=== PATIENT | male | born 1975 | race Caucasian/White ===

== ENCOUNTER 2016-09-16 10:30 | Inpatient (IN) | payer OTHER ==
[~2016-09-16] VITALS: Ht 188 cm; Wt 97.0 kg
[2016-09-16 10:31] VITALS: BP 141/87; PULSE 97; RESP 17; TEMP 98.3; O2SAT 99
[2016-09-16 10:47] VITALS: BP 146/76; PULSE 80; RESP 16; O2SAT 99
[2016-09-16] MEDS ORDERED: LIDOCAINE HCL 1% 50 ML VIAL INFIL ONE (11:00)
[2016-09-16] MEDS ORDERED: TETANUS/DIPHTHERIA TOXOID ADULT 0.5 ML VIAL IM ONE (11:00)
--- NOTE | 2016-09-16 11:12 | PD ---
HPI Chief Complaint: Injury Time Seen by Provider: 10:42 Travel History International Travel<30 days: No Contact w/Intl Traveler<30days: No Traveled to known affect area: No History of Present Illness HPI 41yo M with no PMH presents to the ED with c/o left toe pain s/p running and hitting his left big toe on the sloped wall of [employer] about an hour prior to arrival. States he saw bone. Does not know last tetanus. Denies any other injuries. Last drink/foot was 9:30am. PFSH Past Medical History Medical History: Denies Significant Hx Tetanus Vaccination: > 5 Years Influenza Vaccination: No Social History Alcohol Use: No Tobacco Use: No Substance Use: No Allergies-Medications (Allergen,Severity, Reaction): Coded Allergies: No Known Allergies (Unverified , 09/16/16) Reported Meds & Prescriptions Reported Meds & Active Scripts Active No Active Prescriptions or Reported Medications Review of Systems Except as stated in HPI: all other systems reviewed are Neg Physical Exam Narrative GENERAL: 41yo M in distress. SKIN: Focused skin assessment warm/dry. HEAD: Atraumatic. Normocephalic. CARDIOVASCULAR: Regular rate and rhythm. No murmur appreciated. RESPIRATORY: No accessory muscle use. Clear to auscultation. Breath sounds equal bilaterally. GASTROINTESTINAL: Abdomen soft, non-tender, nondistended. No rebound tenderness or guarding. MUSCULOSKELETAL: Left foot: +Open fracture of distal phalanx of 1st toe. +Bone exposed from 4cm laceration on distal 1st phalanx. DP 2+. Sensation intact. NEUROLOGICAL: Awake and alert. No obvious cranial nerve deficits. Motor grossly within normal limits. Normal speech. PSYCHIATRIC: Appropriate mood and affect; insight and judgment normal. Data Data Last Documented VS Vital Signs Date Time Temp Pulse Resp B/P Pulse Ox O2 Delivery O2 Flow Rate FiO2 09/16/16 10:47 80 16 146/76 99 Room Air 09/16/16 10:31 98.3 Orders Foot, Complete ([id number]) (09/16/16 ) Lidocaine 1% Inj (50 Ml) (Xylocaine 1% I (09/16/16 11:00) Tetanus/Diphtheria Tox Adult (Tetanus/Di (09/16/16 11:00) Morphine Inj (Morphine Inj) (09/16/16 11:15) Complete Blood Count With Diff (09/16/16 11:09) Basic Metabolic Panel (Bmp) (09/16/16 11:09) Prothrombin Time / Inr (Pt) (09/16/16 11:09) Act Partial Throm Time (Ptt) (09/16/16 11:09) Type And Screen (09/16/16 11:09) Cefazolin 2 Gm Premix (Ancef 2 Gm Premix (09/16/16 12:15) Morphine Inj (Morphine Inj) (09/16/16 12:15) NPO (09/16/16 12:28) Consult Podiatry (09/16/16 ) Admit Order (Ed Use Only) (09/16/16 12:43) Labs Laboratory Tests Test 09/16/16 11:29 White Blood Count 8.8 TH/MM3 Red Blood Count 5.11 MIL/MM3 Hemoglobin 14.3 GM/DL Hematocrit 41.9 % Mean Corpuscular Volume 82.0 FL Mean Corpuscular Hemoglobin 28.0 PG Mean Corpuscular Hemoglobin 34.1 % Concent Red Cell Distribution Width 13.1 % Platelet Count 250 TH/MM3 Mean Platelet Volume 9.2 FL Neutrophils (%) (Auto) 57.0 % Lymphocytes (%) (Auto) 32.4 % Monocytes (%) (Auto) 7.9 % Eosinophils (%) (Auto) 1.9 % Basophils (%) (Auto) 0.8 % Neutrophils # (Auto) 5.0 TH/MM3 Lymphocytes # (Auto) 2.8 TH/MM3 Monocytes # (Auto) 0.7 TH/MM3 Eosinophils # (Auto) 0.2 TH/MM3 Basophils # (Auto) 0.1 TH/MM3 CBC Comment DIFF FINAL Differential Comment Prothrombin Time 10.2 SEC Prothromb Time International 0.9 RATIO Ratio Activated Partial 27.5 SEC Thromboplast Time Sodium Level 142 MEQ/L Potassium Level 4.1 MEQ/L Chloride Level 108 MEQ/L Carbon Dioxide Level 26.0 MEQ/L Anion Gap 8 MEQ/L Blood Urea Nitrogen 7 MG/DL Creatinine 1.03 MG/DL Estimat Glomerular Filtration 80 ML/MIN Rate Random Glucose 100 MG/DL Calcium Level 9.0 MG/DL Blood Type O POSITIVE Antibody Screen NEGATIVE Blood Bank Comment MDM Medical Decision Making Medical Screen Exam Complete: Yes Emergency Medical Condition: Yes Interpretation(s) Last Impressions Foot X-Ray 09/16/16 0000 Signed Impressions: Service Date/Time: Friday, September 16, 2016 11:04 - CONCLUSION: Displaced fracture distal phalanx first toe Toni Reinoso MD Differential Diagnosis Open fracture vs. fracture dislocation Narrative Course 41yo M with left open toe fracture. Pt's left toe was anesthesized with 1% lidocaine and irrigated with normal saline. Pt given ancef and tetanus. Labs reviewed, no leukocytosis. BMP unremarkable. Xray left foot showed displaced fracture distal phalanx first toe. I discussed with Dr. Vera who states he will take pt to the OR today. Discussed with Dr. Almendarez and accepted to his service. Diagnosis Primary Impression: Fracture of distal phalanx of great toe Qualified Code: S92.422A - Closed displaced fracture of distal phalanx of left great toe, initial encounter Admitting Information Admitting Physician Requests: Admit Scripts No Active Prescriptions or Reported Meds Ashley Birch DO Sep 16, 2016 11:12
[2016-09-16] MEDS ORDERED: MORPHINE SULFATE 4 MG/ML INJ IV PUSH ONE ×2 (11:15→12:15)
--- NOTE | 2016-09-16 11:30 | RADRPT ---
EXAM DATE/TIME: 09/16/2016 11:04 [facility] COMPARISON: No previous studies available for comparison. INDICATIONS : Left foot/1st digit pain and open wound after stubbing toe at a local trampoline gym. MEDICAL HISTORY : None. SURGICAL HISTORY : None. ENCOUNTER: Initial ACUITY: 1 day PAIN SCORE: 10/10 LOCATION: Left foot/1st digit FINDINGS: There is a displaced fracture involving the distal phalanx of the first toe. There is soft tissue swe lling. No joint dislocation. The rest of the bony structures are grossly intact. CONCLUSION: Displaced fracture distal phalanx first toe Toni Reinoso MD on September 16, 2016 at 11:26 Board Certified Radiologist. This report was verified electronically.
[2016-09-16 11:51] LABS: BASOPHIL # 0.1 TH/MM3 (0-0.2); BASOPHIL % 0.8 % (0.0-2.0); EOSINOPHIL # 0.2 TH/MM3 (0-0.4); EOSINOPHIL % 1.9 % (0.0-4.0); HEMATOCRIT 41.9 % (39.0-51.0); HEMO FLAGS DIFF FINAL; LYMPH % 32.4 % (9.0-44.0); LYMPHOCYTE # 2.8 TH/MM3 (1.0-4.8); MEAN CORPUSCULAR HGB CONC 34.1 % (32.0-36.0); MONO % 7.9 % (0.0-8.0); PLATELET COUNT 250 TH/MM3 (150-450); RED BLOOD COUNT 5.11 MIL/MM3 (4.50-5.90); RED CELL DISTRIBUTION WIDTH 13.1 % (11.6-17.2); WHITE BLOOD COUNT 8.8 TH/MM3 (4.0-11.0)
[2016-09-16] MEDS ORDERED: KETOROLAC TROMETHAMINE 60 MG/2 ML (IM) VIAL IM ONE (12:00)
[2016-09-16] MEDS ORDERED: ONDANSETRON HCL 4 MG/2 ML VIAL IV PUSH ONE (12:00)
[2016-09-16] MEDS ORDERED: NEOMYCIN/POLYMYXIN 1 ML G.U. IRRIGANT IRRIGATION ONE (12:00)
[2016-09-16] MEDS ORDERED: PROPOFOL 200 MG/20 ML AMP IV ONE (12:00)
[2016-09-16 12:08] LABS: APTT (PATIENT) 27.5 SEC (24.3-30.1); INTERNATIONAL NORMALIZED RATIO 0.9 RATIO; POTASSIUM 4.1 MEQ/L (3.5-5.1); PROTHROMBIN TIME - PATIENT 10.2 SEC (9.8-11.6)
[2016-09-16] MEDS ORDERED: ceFAZolin 2 GM PREMIX 50 ML IV ONE (12:15)
[2016-09-16] MEDS ORDERED: SODIUM CHLOR 0.9% 1000 ML INJ 1,000 ML IV SCH (13:35)
[2016-09-16] MEDS ORDERED: ONDANSETRON HCL 4 MG/2 ML VIAL IVP PRN (13:45)
[2016-09-16] MEDS ORDERED: ACETAMINOPHEN 325 MG TAB PO PRN (13:45)
[2016-09-16] MEDS ORDERED: ACETAMINOPHEN/HYDROcodone 325 MG/5 MG TAB PO PRN (13:45)
[2016-09-16] MEDS ORDERED: NALOXONE HCL 0.4 MG/ML AMP IV PRN (13:45)
[2016-09-16] MEDS ORDERED: ACETAMINOPHEN/HYDROcodone 325 MG/7.5 MG TAB PO PRN (13:45)
[2016-09-16] MEDS ORDERED: BISACODYL 10 MG SUPP RECTAL PRN (13:45)
[2016-09-16] MEDS ORDERED: MORPHINE SULFATE 4 MG/ML INJ IV PRN (13:45)
[2016-09-16] MEDS ORDERED: MAGNESIUM HYDROXIDE SUSP 30 ML CUP PO PRN (13:45)
[2016-09-16 15:37] VITALS: BP 141/83; PULSE 60; RESP 16; O2SAT 99
[2016-09-16] MEDS: MORPHINE SULFATE 4 MG/ML INJ IV PRN ×2 (15:55→17:30)
--- NOTE | 2016-09-16 16:46 | HHI.HP ---
[facility] Primary Care Physician Unknown Admission Diagnosis Left open distal phalanx fracture and dislocation Diagnoses: Chief Complaint: Left toe pain Travel History International Travel<30 Days: No Contact w/Intl Traveler <30 Da: No Traveled to Known Affected Are: No History of Present Illness 41 years old male with no past medical history presented to the ED complaining of severe left toe pain after he had his left big toe on the sloped wall of [facility]. Patient stated he saw the bone sticking out of his toe, podiatry consulted from ED plan to go to our after admitting to hospitalist service. Patient seen in the holding room, he was doing okay, no chest anal dizziness lightheadedness, he started on morphine for pain. No abdominal pain no chest pain coughing flulike syndrome or losing consciousness Review of Systems All systems reviewed and was positive for what is mentioned in history of present illness otherwise negative Past Family Social History Past Medical History No significant disease, no hypertension hyperlipidemia or diabetes Past Surgical History Right shoulder and right forearm surgery Allergies: Coded Allergies: No Known Allergies (Unverified , 09/16/16) Family History Prostate cancer the father Social History Quit smoking a year ago, no alcohol or else drug abuse Physical Exam Vital Signs Vital Signs Date Time Temp Pulse Resp B/P Pulse Ox O2 Delivery O2 Flow Rate FiO2 09/16/16 15:37 60 16 141/83 99 Room Air 09/16/16 10:47 80 16 146/76 99 Room Air 09/16/16 10:31 98.3 97 17 141/87 99 Physical Exam GENERAL: This is a well-nourished, well-developed patient, in no apparent distress. SKIN: No rashes, warm and dry HEAD: Atraumatic. Normocephalic. EYES: Pupils equal round and reactive. Extraocular motions intact. No scleral icterus. ENT: Nose without bleeding, or drainage, Airway patent. NECK: Trachea midline. Supple CARDIOVASCULAR: Regular rate and rhythm without murmurs, gallops, or rubs. RESPIRATORY: Fair air entry bilaterally. No wheezes, rales, or rhonchi. GASTROINTESTINAL: Abdomen soft, non-tender, nondistended. Positive bowel sounds MUSCULOSKELETAL: Extremities without clubbing, cyanosis, or edema. Pedal pulses appreciated, left foot in bandage NEUROLOGICAL: Awake and alert. Moves all extremity. Normal speech.no focal neurological deficit Laboratory Laboratory Tests Test 09/16/16 11:29 White Blood Count 8.8 Red Blood Count 5.11 Hemoglobin 14.3 Hematocrit 41.9 Mean Corpuscular Volume 82.0 Mean Corpuscular Hemoglobin 28.0 Mean Corpuscular Hemoglobin 34.1 Concent Red Cell Distribution Width 13.1 Platelet Count 250 Mean Platelet Volume 9.2 Neutrophils (%) (Auto) 57.0 Lymphocytes (%) (Auto) 32.4 Monocytes (%) (Auto) 7.9 Eosinophils (%) (Auto) 1.9 Basophils (%) (Auto) 0.8 Neutrophils # (Auto) 5.0 Lymphocytes # (Auto) 2.8 Monocytes # (Auto) 0.7 Eosinophils # (Auto) 0.2 Basophils # (Auto) 0.1 CBC Comment DIFF FINAL Differential Comment Prothrombin Time 10.2 Prothromb Time International 0.9 Ratio Activated Partial 27.5 Thromboplast Time Sodium Level 142 Potassium Level 4.1 Chloride Level 108 Carbon Dioxide Level 26.0 Anion Gap 8 Blood Urea Nitrogen 7 Creatinine 1.03 Estimat Glomerular Filtration 80 Rate Random Glucose 100 Calcium Level 9.0 Blood Type O POSITIVE Antibody Screen NEGATIVE Blood Bank Comment Result Diagram: 09/16/16 1129 09/16/16 1129 Imaging Last Impressions Foot X-Ray 09/16/16 0000 Signed Impressions: Service Date/Time: Friday, September 16, 2016 11:04 - CONCLUSION: Displaced fracture distal phalanx first toe Toni Reinoso MD Assessment and Plan Assessment and Plan 41 years old male presented after he had his left big toe x-ray showed left distal phalanx displaced fracture: Started on morphine for pain, podiatry consulted, plan to go to OR this evening, keep nothing by mouth, iv fluid, [place] and morphine for pain management postop DVT prophylaxis with ambulation postop if okay with podiatry Discussed Condition With Patient in ED physician Physician Certification 2 Midnight Certification Type: Admission for Inpatient Services Order for Inpatient Services The services are ordered in accordance with Medicare regulations or non- Medicare payer requirements, as applicable. In the case of services not specified as inpatient-only, they are appropriately provided as inpatient services in accordance with the 2-midnight benchmark. Estimated LOS (days): 2 days is the estimated time the patient will need to remain in the hospital, assuming treatment plan goals are met and no additional complications. Post-Hospital Plan: Home Anthony Almendarez MD Sep 16, 2016 16:46
[2016-09-16] MEDS ORDERED: GENTAMICIN SULFATE 80 MG/2 ML VIAL ONE (18:01)
[2016-09-16] MEDS ORDERED: BUPIVACAINE HCL PF 0.25% 30 ML VIAL ONE (18:01)
[2016-09-16] MEDS ORDERED: ceFAZolin INJ 1,000 MG VIAL ONE (18:16)
[2016-09-16] MEDS ORDERED: LIDOCAINE HCL 2% 50 ML VIAL ONE (18:16)
[2016-09-16] MEDS ORDERED: ACETAMINOPHEN 1000 MG/100 ML VIAL IV ONE (18:41)
[2016-09-16] MEDS ORDERED: MIDAZOLAM HCL 2 MG/2 ML VIAL ONE (19:28)
--- NOTE | 2016-09-16 20:11 | RADRPT ---
EXAM DATE/TIME: 09/16/2016 19:42 [facility] COMPARISON: FOOT LEFT COMPLETE ([id number]), September 16, 2016, 11:04. INDICATIONS : Left 1st digit toe open reduction internal fixation. MEDICAL HISTORY : None. SURGICAL HISTORY : None. ENCOUNTER: Subsequent ACUITY: 1 day PAIN SCORE: 0/10 LOCATION: Left foot, 1st digit toe FINDINGS: A screw has been placed in the left 1st distal phalanx status post ORIF. The bones appear to be well aligned. CONCLUSION: 1. Status post ORIF of left 1st distal phalangeal fracture with screw in good position and bones wel l aligned. Miguel Thompson MD on September 16, 2016 at 20:05 Board Certified Radiologist. This report was verified electronically.
[2016-09-16] MEDS ORDERED: DO NOT ADM ANY ANTICOAGULANT DRUGS PRN (20:15)
--- NOTE | 2016-09-16 20:33 | HHI.PR ---
Blank section for building Admission Date: Sep 16, 2016 at 12:45 Discharge Date: 09/16/2016 Admitting Physician: Anthony Almendarez MD Additional Physicians: Shanthi Vera DPM Departure Disposition: Stable Discharge Diagnosis: Left Open Distal Phalanx Fracture And Dislocation Discharge Disposition: Home Other Physician: please follow up with Dr. Grace in 3-5 days Reason for Visit: Left Open Distal Phalanx Fracture And Dislocation Patient is S/P ORIF Left Hallux Patient improved faster than expected and cleared for DC home by Podiatry Patient DC home in stable condition on a regular diet as tolerated, activity and wound care instructions per podiatry. Discharge medications per podiatry: Keflex and Cinebar Discussed with Dr. Almendarez and nursing Alix Moura Sep 16, 2016 20:33
--- NOTE | 2016-09-16 20:38 | MB ---
cc: SHANTHI VERA DPM DATE OF CONSULTATION 09/16/2016 DATE OF 1975 REASON FOR CONSULTATION Left open hallux dislocation rupture. HISTORY OF PRESENT ILLNESS The patient is a 41-year-old male with no past medical history, presented to the ED this morning after injuring his big toe on sloped wall at [employer]. He states he saw the bone sticking out of his toe and presented to the ED. Denies any nausea, vomiting, fevers, diarrhea, chest pains. REVIEW OF SYSTEMS Six point review of systems unremarkable. MEDICAL HISTORY None. PAST SURGICAL HISTORY Right shoulder and forearm surgery. ALLERGIES NKDA. FAMILY HISTORY Noncontributory. SOCIAL HISTORY Smoking, quit smoking a year ago. No alcohol or tobacco abuse. PHYSICAL EXAMINATION DIRECTED EXAMINATION: Left hallux with open fracture distal phalanx, intact nail plate. No active bleeders. Protective sensation grossly intact. Cap fill to distal tip within less than 3 seconds. LABORATORY DATA WBC 09/16/16 8.8, RBC 5.11, H&H 14.3 and 41.9 respectively. IMAGING STUDIES Left foot x-rays with an open dislocated fracture where the distal fragment is plantar flexed. ASSESSMENT/PLAN 1. Left hallux open traumatic fracture. My plan for this patient is to orient the fracture and close with a screw fixation. Risks, benefits, pros and cons were discussed. The patient freely consented to surgical intervention. No guarantees were given or implied. All questions answered. Shanthi Vera DPM SR/EO /8:21 PM /8:26 PM
[2016-09-16] MEDS ORDERED: CEPH-460 PO (20:50)
[2016-09-16] MEDS ORDERED: NORC5TAB PO (20:50)
[2016-09-16 21:00] VITALS: BP 147/82; PULSE 77; RESP 19; TEMP 97.6; O2SAT 100
[2016-09-16] MEDS ORDERED: DOCUSATE SODIUM 50 MG/SENNA 8.6 MG TAB PO SCH (21:00)
--- NOTE | 2016-09-16 21:44 | MP ---
cc: LEIGHTON VERA DATE OF SURGERY 09/16/2016 DATE OF 1975 PREOPERATIVE DIAGNOSIS Left hallux open fracture. POSTOPERATIVE DIAGNOSIS Left hallux open fracture. PROCEDURE Left hallux ORIF. ANESTHESIOLOGIST Dr. Pereyra ANESTHESIA LMA. HEMOSTASIS Left ankle tourniquet 30 minutes at 250 mmhg. ESTIMATED BLOOD LOSS Less than 5 cc. MATERIALS 2.4 mm x 1 x 24 mm cannulated headless screw from [employer]. 3-0 nylon injectables postoperatively, 20 cc 0.5% Marcaine plain. BRIEF HISTORY The patient is a 41-year-old male who sustained a left hallux open fracture on 09/16/16 approximately at 11:00 a.m. He was seen in the ED, x-rays confirmed open fracture and discussed surgical intervention. The risks, benefits, pros, cons were discussed with the patient. He freely consents to surgical intervention. No guarantees were given or implied. Ancef 2 grams was given preoperatively and 1 gram was given just before start of surgical. PROCEDURE IN DETAIL Anesthesia was of started with LMA. Time-out was called. Left foot was blocked with a 1:1 mixture of 2% lidocaine plain along with 0.25% Marcaine plain. 10 cc in a first ray block. Left foot was prepped, scrubbed and draped in the usual sterile aseptic manner. Attention was then directed to the left toe where the open fractures noted. The nail plate impeded the realignment of the fracture and this was freed and removed using a Perry. The fracture was then easily relocated but prior to this the fracture was irrigated with normal sterile saline impregnated with 2 units of copiously. Culture was taken prior to irrigation. Passed off the field for aerobic, anaerobic, Gram stain culture and sensitivity. The fracture was temporarily fixated with K-wire over which a cannulated 2.4 headless [employer] screw could fixate. Good intraoperative fixation was noted and the headless screw was applied using AO technique. Once again good alignment was noted with intraoperative fluoroscopy. The incision was then copiously irrigated with normal sterile saline, primarily repaired with 3-0 nylon in a simple suture at the distal tip and a horizontal mattress suture on the medial aspect of the nail fold as well as the lateral aspects where the laceration traumatically had occurred. Dry sterile dressings were applied using triple antibiotic on the nail bed, Adaptic, 4x4s, Sof-Rol and lightly applied Coban. Tourniquet was deflated after 30 minutes with prompt hyperemic response in the digits one to five on the left. The patient tolerated the procedure, at completion to be transferred PACU for a brief period of postop monitoring after which he will be discharged home per PACU protocol. He will follow up with Dr. Vera within 1 week of discharge. He was discharged with [facility] for pain management as well as Keflex x2 weeks. The patient will be non-weightbearing and a follow appropriately while in-house, after discharge. RAJAN Dejesus /8:24 PM /9:03 PM
--- NOTE | 2016-09-17 08:40 | HHI.PR ---
Addendum to Inpatient Note Additional Information Discharge patient to home Condition on discharge: Improved Regular Diet as tolerated Ad Radha activity Rx written:see med rec Follow-up with primary care physician, ortho as directed Anthony Almendarez MD Sep 17, 2016 08:40
[2016-09-17] MEDS ORDERED: HEPARIN SODIUM - SQ 10,000 UNITS/ML VIAL SQ SCH (20:00)
== END 2016-09-16 21:15 | disposition home or self-care (01) | DRG 505 ==
LOC: NEPC 10:30 → NEDA 12:45
PROVIDERS: ADMIT Hospitalist; ATTEND Hospitalist
PROC: 3E0T3CZ (ICD-10-PCS; 2016-09-16)
PROC: 0QSR04Z Reposition Left Toe Phalanx with Internal Fixation Device, Open Approach (ICD-10-PCS; principal; 2016-09-16 18:07)
DX: S92.422B Displaced fracture of distal phalanx of left great toe, initial encounter for open fracture (principal); W22.01XA Walked into wall, initial encounter; Y93.02 Activity, running; Z87.891 Personal history of nicotine dependence
CPT/HCPCS: 64450; 73630; 80048; 85025; 85610; 85730; 86403; 86850; 86900; 86901; 87015; 87070; 87102; 87116; 87205; 87206; 90471; 90714; 96365; 96375; 96376; C1713; J0131; J0690; J1580; J2250; J2270; J3010; J7030; L3260